=== PATIENT | male | born 1955 | race Caucasian/White ===

== ENCOUNTER 2016-09-02 11:38 | Inpatient (IN) | payer MEDICAID ==
[~2016-09-02] VITALS: Ht 175.3 cm; Wt 114.8 kg
[~2016-09-02 11:38] MED LIST: ACTIGALL300 MG PO; ALDACTONE100 MG PO; ALDACTONE25 MG PO; ARGININE PO; CALCIUM WITH D3 PO; DUL5 PO; ENALAPRIL MALEA10 MG PO; FERROUS SULFAT325 M2 PO; FUROSEMIDE40 MG PO; GLUCOVANCE1 TA2 PO; GLYBURIDE1.5 MG PO; LAC30L NG; LAC30L PO; LACTULOSE10 GM/152 PO; MEPHYTON5 MG PO; METFORMIN HCL1000 MG PO; METFORMIN1000 M1 PO; MULTI VITAMINS1 TA1 PO; NEO500 PO; NEXIUM40 MG PO; PRILOSEC20 MG PO; PROPRANOLOL HCL10 MG PO; PROPRANOLOL HCL20 MG PO; PROT40I IV; PROTONIX20 MG PO; SENOKOT NATURA8.6 M1 PO; URSODIOL300 MG PO; XIFAXAN550 M1 PO; [UNRECOGNIZED DRUG - OTHER] IV; [UNRECOGNIZED DRUG - OTHER] PO; [UNRECOGNIZED DRUG - OTHER] PO
[2016-09-02 12:22] LABS: BASOPHIL % 0.5 % (0-2); RED CELL DISTRIBUTION WIDTH 14.2 % (11.5-14.5)
[2016-09-02 12:27] LABS: PLATELET COUNT 86 x10^3mcL (130-400)
[2016-09-02 12:30] LABS: CALCIUM 9.3 mg/dL (8.5-10.1); CHLORIDE SERUM 102 mmol/L (98-107); GFR1 > 60 mL/min; GLUCOSE SERUM 204 mg/dL (74-106); POTASSIUM SERUM 4.8 mmol/L (3.5-5.1); SODIUM SERUM 136 mmol/L (136-145)
[2016-09-02 12:34] LABS: ALKALINE PHOSPHATASE 228 U/L (46-116); ALT/SGPT 44 U/L (16-63); AST/SGOT 56 U/L (15-37); BILIRUBIN TOTAL 2.61 mg/dL (0.20-1.00); CHOLESTEROL 144 mg/dL (<200); TOTAL PROTEIN, SERUM 6.9 g/dL (6.4-8.2)
[2016-09-02 12:43] LABS: ALBUMIN 2.7 g/dL (3.4-5.0)
[2016-09-02 14:38] VITALS: BP 124/69
[2016-09-02 14:47] VITALS: Ht 175.3 cm; Wt 114.8 kg
[2016-09-02 16:21] LABS: MAGNESIUM 1.4 mg/dL (1.8-2.4); PHOSPHOROUS 3.7 mg/dL (2.5-4.9)
[2016-09-02 16:25] LABS: T3 TOTAL 0.87 ng/mL
[2016-09-02 16:32] LABS: FREE T4 1.3 ng/dL (0.76-1.46); FREE THYROXINE INDEX 2.7 ug/dL (1.4-4.5); T4(THYROXINE) 7.2 ug/dL (4.7-13.3)
[2016-09-02 17:18] VITALS: BP 109/56
[2016-09-02 17:53] LABS: microscopic required? NO
[2016-09-02 18:01] LABS: UA SPECIFIC GRAVITY >=1.030 (1.005-1.035); urine erythrocyte NEGATIVE (NEGATIVE)
[2016-09-03 06:09] LABS: BASOPHIL % 0.4 % (0-2); RED CELL DISTRIBUTION WIDTH 13.9 % (11.5-14.5)
[2016-09-03 06:39] LABS: PLATELET COUNT 73 x10^3mcL (130-400)
[2016-09-03 06:40] VITALS: BP 106/52
[2016-09-03 07:42] LABS: CALCIUM 8.8 mg/dL (8.5-10.1); CARBON DIOXIDE 23.4 mmol/L (21-32); CHLORIDE SERUM 105 mmol/L (98-107); CHOLESTEROL 134 mg/dL (<200); CREATININE SERUM 0.9 mg/dL (0.7-1.3); GFR1 > 60 mL/min; GLUCOSE SERUM 130 mg/dL (74-106); SODIUM SERUM 137 mmol/L (136-145); TRIGLYCERIDES 128 mg/dL (<150)
[2016-09-03 07:43] LABS: CHOLESTEROL/HDL RATIO 2.9; HDL CHOLESTEROL 47 mg/dL (40-60)
[2016-09-03 09:24] VITALS: BP 129/67
[2016-09-03 14:00] VITALS: BP 115/67
[2016-09-03 17:00] VITALS: BP 116/67
[2016-09-03 22:12] VITALS: BP 132/68
[2016-09-04 04:55] VITALS: BP 105/64
[2016-09-04 06:37] LABS: BASOPHIL % 0.3 % (0-2); RED CELL DISTRIBUTION WIDTH 13.9 % (11.5-14.5)
[2016-09-04 06:58] LABS: PLATELET COUNT 67 x10^3mcL (130-400)
[2016-09-04 07:03] LABS: CALCIUM 8.6 mg/dL (8.5-10.1); CARBON DIOXIDE 23.7 mmol/L (21-32); CHLORIDE SERUM 104 mmol/L (98-107); CREATININE SERUM 0.9 mg/dL (0.7-1.3); GFR1 > 60 mL/min; GLUCOSE SERUM 164 mg/dL (74-106); MAGNESIUM 1.3 mg/dL (1.8-2.4); PHOSPHOROUS 3.9 mg/dL (2.5-4.9); POTASSIUM SERUM 4.2 mmol/L (3.5-5.1); SODIUM SERUM 135 mmol/L (136-145)
[2016-09-04 09:36] VITALS: BP 117/68
[2016-09-04] MEDS ORDERED: GLU5 PO (13:24)
[2016-09-04 13:44] VITALS: BP 117/68
== END 2016-09-04 15:03 | disposition home or self-care (01) | DRG 280 ==
LOC: ED 11:38 → DU 13:35 → MU 09-04 06:54
PROVIDERS: Specialist; ADMIT Family Medicine
DX: K70.30 Alcoholic cirrhosis of liver without ascites (principal); K70.41 Alcoholic hepatic failure with coma; E43 Unspecified severe protein-calorie malnutrition; E11.59 Type 2 diabetes mellitus with other circulatory complications; D69.59 Other secondary thrombocytopenia; E11.65 Type 2 diabetes mellitus with hyperglycemia; F10.21 Alcohol dependence, in remission; L40.9 Psoriasis, unspecified; M51.16 Intervertebral disc disorders with radiculopathy, lumbar region; Z68.37 Body mass index [BMI] 37.0-37.9, adult; Z87.820 Personal history of traumatic brain injury
CPT/HCPCS: 82962; 83880; 84439; G0480; J3475; J7030; Q0092

== ENCOUNTER 2017-01-14 13:00 | Emergency (ER) | payer MEDICAID ==
[~2017-01-14] VITALS: Ht 172.7 cm; Wt 112.5 kg
[~2017-01-14 13:00] MED LIST changes: +GLU5 PO
[2017-01-14 15:17] VITALS: BP 107/65
[2017-01-15] MEDS ORDERED: PROPRANOLOL HCL10 MG PO (04:08)
[2017-01-15] MEDS ORDERED: TRAZODONE50 M1 PO (04:10)
[2017-01-15] MEDS ORDERED: METFORMIN HCL1000 MG PO (04:10)
[2017-01-15] MEDS ORDERED: XIFAXAN550 M1 PO (04:10)
[2017-01-15] MEDS ORDERED: ALDACTONE25 MG PO (04:10)
[2017-01-15] MEDS ORDERED: LACTULOSE10 GM/152 PO (04:11)
[2017-01-15] MEDS ORDERED: URSODIOL300 MG PO (04:11)
[2017-01-15] MEDS ORDERED: [UNRECOGNIZED DRUG - CODE] PO (04:11)
[2017-01-15] MEDS ORDERED: GLIPIZIDE2.5 M1 PO (04:12)
[2017-01-15] MEDS ORDERED: DIAZEPAM5 MG PO (04:13)
[2017-01-15] MEDS ORDERED: TRAMADOL HCL50 MG PO (04:14)
== END 2017-01-14 15:36 | disposition home or self-care (01) ==
LOC: ED 13:00
DX: M54.16 Radiculopathy, lumbar region (principal); K74.60 Unspecified cirrhosis of liver; E11.9 Type 2 diabetes mellitus without complications; I10 Essential (primary) hypertension; E66.01 Morbid (severe) obesity due to excess calories
CPT/HCPCS: J1100; J1885

== ENCOUNTER 2017-01-15 00:33 | Inpatient (IN) | payer MEDICAID ==
[~2017-01-15] VITALS: Ht 172.7 cm; Wt 112.7 kg
[2017-01-15 01:41] LABS: RED CELL DISTRIBUTION WIDTH 13.4 % (11.5-14.5)
[2017-01-15 01:55] LABS: BILIRUBIN TOTAL 2.6 mg/dL (0.20-1.00); CALCIUM 8.6 mg/dL (8.5-10.1); CARBON DIOXIDE 19.1 mmol/L (21-32); CREATININE SERUM 1.7 mg/dL (0.7-1.3); POTASSIUM SERUM 5.2 mmol/L (3.5-5.1); TOTAL PROTEIN, SERUM 7.3 g/dL (6.4-8.2)
[2017-01-15 01:57] LABS: BASOPHIL % 3.2 % (0-2); PLATELET COUNT 77 x10^3mcL (130-400)
[2017-01-15 01:58] LABS: ALBUMIN 2.5 g/dL (3.4-5.0)
--- NOTE | 2017-01-15 02:07 | NUR ---
PATIENT SEEN WITH COM[PLAINT OF HAVING HIGH BLOOD SUGAR AT HOME. PATIENT WAS SEEN BY MD. SALINE LOCK INSERTED, FLUID BOLUS GIVEN.
--- NOTE | 2017-01-15 03:40 | NUR ---
CHANGE IN ASSIGNMENT REPORT GIVEN BY CECIL GASCA TO CONTINUE CARE.
--- NOTE | 2017-01-15 03:55 | NUR ---
PT GIVEN IV MED PER DR ABEL ORDERS. PT EDUCATED ON MED AND VERBALIZED UNDERSTANDING OF TEACHING. PT IV SITE PATENT WITH NO SX OF INFILTRATION NOTED. PT ON GURNEY WATCHING TV, BREATING EVEN AND UNLABORED. NO SX OF DISTRESS NOTED AT THIS TIME.
[2017-01-15] MEDS ORDERED: PROPRANOLOL HCL10 MG PO (04:08)
[2017-01-15] MEDS ORDERED: METFORMIN HCL1000 MG PO (04:10)
[2017-01-15] MEDS ORDERED: ALDACTONE25 MG PO (04:10)
[2017-01-15] MEDS ORDERED: XIFAXAN550 M1 PO (04:10)
[2017-01-15] MEDS ORDERED: TRAZODONE50 M1 PO (04:10)
[2017-01-15] MEDS ORDERED: LACTULOSE10 GM/152 PO (04:11)
[2017-01-15] MEDS ORDERED: URSODIOL300 MG PO (04:11)
[2017-01-15] MEDS ORDERED: [UNRECOGNIZED DRUG - CODE] PO (04:11)
[2017-01-15] MEDS ORDERED: GLIPIZIDE2.5 M1 PO (04:12)
[2017-01-15] MEDS ORDERED: DIAZEPAM5 MG PO (04:13)
[2017-01-15] MEDS ORDERED: TRAMADOL HCL50 MG PO (04:14)
--- NOTE | 2017-01-15 05:11 | NUR ---
XRAY AT BEDSIDE.
--- NOTE | 2017-01-15 05:13 | NUR ---
ADMISSION REPORT GIVEN TO CECIL ESTRADA EXT [id number] TO CONTINUE CARE.
--- NOTE | 2017-01-15 05:19 | NUR ---
NATALIE RN EXT [id number] CALLED FOR BLOOD SUGAR UPDATE.
--- NOTE | 2017-01-15 05:23 | NUR ---
PT GIVEN PO MED PER DR ABEL ORDERS. PT EDUCATED ON MED AND VERBALIZED UNDERSTANDING. NO DIFFICULTY SWALLOWING NOTED.
--- NOTE | 2017-01-15 05:45 | NUR ---
PT BROUGHT UP FROM ER VIA [facility] W/ NURSE. AMBULATED TO BED WITH MINIMAL ASSIST, NO SOB OR S/S OF RESP DISTRESS PRESENT; O2 SAT 97% RA. NO HX SMOKING, NO C/O CHEST PAIN AT THIS TIME. TELE # 41, NSR. CAME IN TO ER FOR WEAKNESS, DIZZINESS, ABD/BACK PAIN. DENIES PAIN AT THIS TIME, GIVEN KAYEXALATE FOR ELEVATED K+ (5.1), BLOOD SUGAR UPON ADMISSION TO ER 477, RETESTED IN ER AT BEDSIDE 442, GIVEN 5 UNITS. BLOOD SUGAR 375 @ 0630, GIVEN 50UNITS. IV INFUSING TO RT WRIST, NS @ 100ML/HR. ORIENTED PT TO ROOM, CALL LIGHT. PT NEAR RESTROOM FOR BM WHEN NEEDED D/T KAYEXALATE. WILL CONTINUE TO MONITOR.
[2017-01-15 05:48] LABS: MAGNESIUM 1.6 mg/dL (1.8-2.4); PHOSPHOROUS 2.6 mg/dL (2.5-4.9)
[2017-01-15 05:56] LABS: T3 TOTAL 0.71 ng/mL
[2017-01-15 06:03] LABS: CHOLESTEROL/HDL RATIO 3.3; FREE T4 1.15 ng/dL (0.76-1.46); FREE THYROXINE INDEX 3.1 ug/dL (1.4-4.5); T4(THYROXINE) 7.9 ug/dL (4.7-13.3)
[2017-01-15 06:10] VITALS: BP 137/80
--- NOTE | 2017-01-15 07:04 | NUR ---
REPORT GIVEN TO AM NURSE. ALSO ENDORSED TO GIVE INFLUENZA VACCINE ( NOT YET VERIFIED AT THIS TIME).
--- NOTE | 2017-01-15 07:04 | NUR ---
CORRECTION, 15 UNITS INSULIN GIVEN, NOT 50 UNITS. MISTYPE.
--- NOTE | 2017-01-15 07:30 | NUR ---
PATIENT IS RESTING IN BED ALERT AND CALM. PATIENTS HAS SCDS IN PLACE. PATIENT INQUIRING ABOUT EATING. EDUCATED ABOUT NPO STATUS. PATIENT HAS IV INFUSING NS 100 ML/HR, SITE WNL. PATIENT IS ON ROOM AIR, BOWEL SOUNDS ARE HYPOACITVE, STOMACH SOFT BUT SLIGHTLY DISTENDED. PATIENT IS TELE 41. CALL LIGHT IS WIHIN REACH, SIDE RAILS ARE UP AND BED IS LOCKED. PATIENT DENIES PAIN AT THIS TIME BUT STATES THAT HE HAS SCIATICA THAT CAUSES PAIN WITH AMBULATION.
[2017-01-15 09:26] VITALS: BP 124/70
--- NOTE | 2017-01-15 10:36 | NUR ---
REVIEWED MEDICATIONS AND EXPLAINED PURPOSE, PATIENT STATED THAT HE UNDERSTOOD THE INSTRUCTIONS, TOLERATED MEDICATIONS. ORDER PUT IN TO TRANSFER TO TELE WAS CANCELLED. PATIENTS STRIP SHOWED ELEVATED T WAVE LAST POTASSIUM WAS 5.2 PATIENT GIVEN KAYEXELATE IN ER, LACTULOSE AND SPIRLACTONE WITH 9AM MEDICATIONS. PATIENT REFUSED ASPIRIN DESPITE EXPLAINING THAT IT HELPS PREVENT CLOTS. PATIENT REFUSED TRAZADONE BC HE SAYS HE ONLY TAKES NEEDED FOR INSOMNIA AND HE TAKES IT AT NIGHT. PATIENT IN NO APPARENT DISTRESS, SIDE RAILS ARE UP AND BED IS LOCKED.
--- NOTE | 2017-01-15 11:45 | NUR ---
PATIENT CALLED COMPLAINING OF HUNGER AND ASKING FOR A SNACK, A SNACK WAS PROVIDED AND THE PATIENTS BLOOD SUGAR WAS REASSESED. PATIENT IS NOT IN DISTRESS, STATING HE WANTED TO AMBULATE AROUND THE ROOM. PATIENT DENIES SOB AND PAIN AT THIS TIME. CALL LIGHT IS WITHIN REACH, SIDE RAILS ARE UP AND BED IS LOCKED.
[2017-01-15 13:06] VITALS: BP 138/77
[2017-01-15 13:25] LABS: microscopic required? NO
[2017-01-15 13:33] LABS: urine erythrocyte NEGATIVE (NEGATIVE)
[2017-01-15 13:50] LABS: AMPHETAMINE QUAL UR NONE DETECTED (NEG <=1000)
--- NOTE | 2017-01-15 13:50 | NUR ---
P.T. NOTES P.T. EVAL DONE; NURSING TO AMBULATE PATIENT AD FILIPE.
--- NOTE | 2017-01-15 14:53 | NUR ---
Initial Nutrition Assessment- Dx: hyperglycemia, hyperkalemia PMHx: cirrhosis of liver, DM, liver failure, GI bleed, s/p TIPS procedure PSHx: s/p TIPS procedure Labs: (01/15/17) Na 129 L (repleted, active order for sodium chl 0.9%), K 5.2 H (active order for kayexalate), Glucose 477 H (active orders for glucotrol and humulin R), Cr 1.7 H, Albumin 2.5 L, Bili 2.6 H, AST 55 H, Hgb 11.7 L, Hct 36 L Meds: aldactone, aspirin, Colace, decadron, Glucotrol, humulin R, kayexalte, morphine sulfate, norco, sodium chl 0.9%, theragran, Tylenol, Zofran Diet: CCHO PO Intakes: Patient report fair appetite, feels hungry Ht: 68 inches (5'8") Wt: 248 pounds (112.71 kg) BMI: 37.8 kg/m2, obesity class 2. 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 Per morning bed huddles, patient's HGBA1c is 5.9%. Nursing Trigger or Consult - unintentional weight loss > 10# in past month, admitted with potential diagnosis. Problem with: N: no V: no D: occasional C: occasional Problems with: Chewing: no Swallowing: no Current appetite: fair, but reports feeling hungry Recent wt changes: %wt change: Patient reports having weighed 292 pounds (5-6 years ago), prior to TIPS procedure patient weighed 232 pounds (and experienced 40-pound weight loss in 10 days thereafter. Vitamin/Supplement: Milk Thistle, MVI-min, vit D3, Magnesium Special Diet at Home: Patient reports he follows a diabetic diet at home; however, due to busy work schedule, he eats out at fast food restaurants often. He also reports working long hours, which prevent him from eating regular meals throughout the day as well as getting enough water/fluids to drink. Physical activity: Used to exercise regularly, but now has low energy and more pain r/t TIPs procedure which limits his ability to exercise. Education: Patient and have attended diabetic diet education classes in the past. RDN provided diabetic diet education to patient and during RDN visit today (01/15), hand provided, patient accepted, verbalized understanding. Estimated Nutritional Needs Based on adjusted body weight of 81 kg. Energy: 4308-6328 kcal/d (30-35 kcal/kg for liver cirrhosis, obesity) Protein: 97-130 gm/d (1.2-1.6 gm/kg for liver cirrhosis, obesity) Fluid: 0193-6405 mL/d (1 mL/kcal) or per MD. Nutrition Diagnosis 1. Increased nutrient needs related liver dysfunction as evidenced by PMHx liver cirrhosis, elevated liver enzymes: AST 55, Bilirubin 2.6. 2. Obesity class 2 related to energy imbalance as evidenced by BMI of 37.8 kg/m2. 3. Altered nutrition-related lab values related to endocrine dysfunction as evidenced by elevated glucose of 477. - Patient currently receives CCHO diet. Intervention/RDN Recommendation(s): 1. Continue on CCHO diet as tolerated. 2. Consult RDN prn. 3. RDN educated patient on diabetic diet; diabetic diet education well received - handouts provided. Monitor/Evaluate Goal: Intake via PO intakes to meet least 75% of estimated needs. Monitor: PO intakes and/or nutrition support tolerance, Labs, GI function F/U in 7 days as low risk (01/22)
--- NOTE | 2017-01-15 15:32 | NUR ---
PATIENT RECIEVING TREATMENT. DOCTOR AT BEDSIDE. PATIENT RECIEVED FLU VACCINE IS L ARM. PATIENT REQUESTING FORM STATING HE WAS GIVEN FLU VACCINE. CALL LIGHT IS WITHIN REACH. WILL FOLLOW UP ON PAPERWORK.
--- NOTE | 2017-01-15 16:57 | NUR ---
PATIENT LAYING IN BED WITH HEATING PAD ON. PATIENT DENIES PAIN AT THIS TIME. PATIENT IS NOT IN DISTRESS, WATCHING TELEVISION, PATIENT EDUCATED ABOUT HOW INSULIN IS ABSORBED BEST IN THE ABDOMEN. PATIENT VERBALIZED UNDERSTANDING. SCDS ARE IN PLACE. CALL LIGHT IS WITHIN REACH AND SIDE RAILS ARE UP.
[2017-01-15 17:26] VITALS: BP 138/81
--- NOTE | 2017-01-15 18:37 | NUR ---
PT HAS HOME MEDS AT BEDSIDE. GIVEN TO DR TALAMANTES TO ORDER FOR PT TO TAKE HERE IN HOSPITAL.
--- NOTE | 2017-01-15 19:28 | NUR ---
PATIENT AMBULATING IN ROOM, HAND OFF REPORT GIVEN TO NOC NURSE, PATIENT DENIES PAIN, SOB AT THIS TIME. CALL LIGHT IS WITHIN REACH.
--- NOTE | 2017-01-15 19:30 | NUR ---
RECIEVED REPORT FROM TRAV. CECIL. PT IS AAOX4. TELE 41 WITH SR (98) WITH AN ELEVATED T WAVE. LUNG SOUNDS ARE CTA ON RA. BOWEL SOUNDS ARE PRESENT. AND IS SOFT, ROUND, NON-TENDER. THE PT IS AMBULATORY WITH GOOD STRENGTH IN ALL EXTREMITIES. IV ACCESS TO RIGHT WRIST, INFUSING 100 CC/HR OF NS. THE BED IS IN THE LOWEST POSITION AND THE CALL LIGHT IS WITHIN REACH. WILL CONTINUE TO MONITOR.
[2017-01-15 20:41] VITALS: Ht 172.7 cm; Wt 112.7 kg
[2017-01-15 21:41] VITALS: BP 138/72
--- NOTE | 2017-01-15 23:00 | NUR ---
PT IS RESTING COMFORTABLY. EVEN, UNLABORED BREATHING. NO ACUTE DISTRESS NOTED. WILL CONTINUE TO MONITOR.
--- NOTE | 2017-01-16 01:39 | NUR ---
PT IS SLEEPING COMFORTABLY. NO ACUTE DISTRESS NOTED. CALL LIGHT WITHIN REACH. WILL CONTINUE TO MONITOR.
--- NOTE | 2017-01-16 04:00 | NUR ---
PT IS RESTING COMFORTABLY IN BED. IV IS INFUSING INTENDED. CALL LIGHT WITHIN REACH. WILL CONTINUE TO MONITOR.
[2017-01-16 05:31] LABS: BASOPHIL % 0.1 % (0-2); RED CELL DISTRIBUTION WIDTH 14.3 % (11.5-14.5)
[2017-01-16 05:44] LABS: PLATELET COUNT 59 x10^3mcL (130-400)
[2017-01-16 05:45] LABS: CALCIUM 8.2 mg/dL (8.5-10.1); CARBON DIOXIDE 24.2 mmol/L (21-32); CHLORIDE SERUM 107 mmol/L (98-107); CREATININE SERUM 0.7 mg/dL (0.7-1.3); GFR1 > 60 mL/min; GLUCOSE SERUM 215 mg/dL (74-106); MAGNESIUM 2.3 mg/dL (1.8-2.4); PHOSPHOROUS 2.8 mg/dL (2.5-4.9)
[2017-01-16 05:47] VITALS: BP 112/68
[2017-01-16 05:58] LABS: SODIUM SERUM 137 mmol/L (136-145)
[2017-01-16 06:03] LABS: POTASSIUM SERUM 4.1 mmol/L (3.5-5.1)
--- NOTE | 2017-01-16 06:11 | NUR ---
THE PT IS RESTING COMFORTABLY IN BED. ALL NEEDS HAVE BEEN MET THROUGHOUT THE NIGHT. THE BED IS IN THE LOWEST POSITION AND THE CALL LIGHT IS WITHIN REACH. WILL ENDORSE TO MORNING SHIFT.
--- NOTE | 2017-01-16 08:00 | NUR ---
AWAKE AND ALERT. TEMP 97.8. TELE #41 SINUS RHYTHM WITH ELEVATED T WAVE. DENIES CHEST DISCOMFORT. RESP 18 EVEN. BREATH SOUNDS CLEAR. NO COUGH OR SOB. PULSE OX 98% RA. ABD SOFT BOWEL TONES PRESENT. LBM=10-20-17. VOIDING QS. NO EDEMA. PULSES PRESENT. SCD IN PLACE. IV PATENT RIGHT WRIST INFUSING NORMAL SALINE 100CC/HR. SIDE RAILS UP X2. CALL LIGHT IN REACH.
--- NOTE | 2017-01-16 08:50 | NUR ---
DR DUKES AND MEDICAL TEAM IN ON ROUNDS. CHARGE AND PRIMARY NURSE PRESENT. DISCUSSED PLAN OF CARE. DIABETIC MANAGEMENT. RIGHT LEG SCIATIC DISCOMFORT. TO ADD MUSCLE RELAXANT TO MED LIST. PT VERBALIZED UNDERSTANDING. ECHO IN PROGRESS.
[2017-01-16 09:26] VITALS: BP 119/68
--- NOTE | 2017-01-16 09:49 | NUR ---
C/O RIGHT SCIATIC DISCOMFORT. REQUEST PAIN MED. MED WITH ULTRAM 50MG PO ORDERED.
--- NOTE | 2017-01-16 10:28 | NUR ---
ECHOCARDIOGRAM COMPLETED.
--- NOTE | 2017-01-16 12:15 | NUR ---
AVP=[id number]. RISS COVERAGE 6 UNITS SQ. DENIES PAIN AT THIS TIME. AMBULATES WELL IN ROOM. IV CONTINUES PATENT. CALL LIGHT IN REACH.
--- NOTE | 2017-01-16 15:26 | NUR ---
IV CONVERTED TO SALINE LOCK. ASSIST UP TO SHOWER. DENIES PAIN AT THIS TIME.
--- NOTE | 2017-01-16 17:10 | NUR ---
SHOWER COMPLETED. TOLERATED WELL. DUU=[id number]. RISS COVERAGE 9 UNITS GIVEN. DENIES PAIN. IV SITE PATENT. CALL LIGHT IN REACH. WILL CONTINUE TO MONITOR.
[2017-01-16 18:19] VITALS: BP 115/59
--- NOTE | 2017-01-16 19:05 | NUR ---
RECEIVED BEDSIDE REPORT, AAOX4. NO RESP DISTRESS NOTED ON ROOM AIR, LUNG SOUND CTA, STS PAIN TO LOWER BACK RADIATING TO RLE IS TOLERABLE AT THIS TIME, BRP, IVF NS TO RT HAND INFUSING WELL, SCD TO BLE INPLACED, PLAN OF CARE DISCUSSED, CALL LIGHT PLACED WITHIN EASY REACH, SIDERAILS UP X2.
[2017-01-16 21:27] VITALS: BP 124/70
[2017-01-17 05:47] VITALS: BP 107/56
[2017-01-17 06:04] LABS: CARBON DIOXIDE 28.8 mmol/L (21-32); CHLORIDE SERUM 107 mmol/L (98-107); CREATININE SERUM 0.7 mg/dL (0.7-1.3); GFR1 > 60 mL/min; GLUCOSE SERUM 158 mg/dL (74-106); MAGNESIUM 1.5 mg/dL (1.8-2.4); PHOSPHOROUS 2.9 mg/dL (2.5-4.9); POTASSIUM SERUM 3.8 mmol/L (3.5-5.1); SODIUM SERUM 138 mmol/L (136-145)
[2017-01-17 06:11] LABS: BASOPHIL % 0.3 % (0-2)
[2017-01-17 06:14] LABS: PLATELET COUNT 62 x10^3mcL (130-400); RED CELL DISTRIBUTION WIDTH 14.7 % (11.5-14.5)
--- NOTE | 2017-01-17 06:43 | NUR ---
SLEPT WELL THROUGHOUT SHIFT. STS PAIN IS RELIEF WITH ROBAXIN PO Q 8HRS GIVEN. BRP. IVF NS CONTINUED AT 100ML/HR TO RT WRIST IV SITE.
--- NOTE | 2017-01-17 07:30 | NUR ---
A+OX4, NO RESPIRATORY DISTRESS NOTED, IN NO APAPRANT PAIN, PULSES MODERATE AND EQUAL LAITH, NO EDEMA PRESENT, LUNG SOUNDS CTA, TOLERATING RA, BOWEL SOUNDS ACTIVE, VOIDING, AMBULATORY, SKIN INTACT, IV IN RW WITH NS @ 100 ML/HR, SITE WNL, RBC 3.10, HGB 10.5, HCT 31, PLT 62, CA 8.0, MG 1.5.
--- NOTE | 2017-01-17 09:05 | NUR ---
PT RESTING IN BED, NO RESPIRATORY DISTRESS NOTED, DENIES PAIN.
[2017-01-17 09:58] VITALS: BP 123/73
--- NOTE | 2017-01-17 10:08 | NUR ---
PT RESTING IN BED, NO RESPRIATORY DISTRESS NOTED, DENIES PAIN.
[2017-01-17] MEDS ORDERED: XIFAXAN550 M1 PO (10:15)
[2017-01-17 10:24] VITALS: BP 123/73
[2017-01-17] MEDS ORDERED: LAC30L PO (10:27)
[2017-01-17] MEDS ORDERED: ROB750 PO (10:29)
--- NOTE | 2017-01-17 10:54 | NUR ---
PT COMPLAINING OF 8/10 BACK PAIN, NORCO GIVEN, NO RESPIRATORY DISTRESS NOTED.
--- NOTE | 2017-01-17 11:59 | NUR ---
DR MEJIA IN TO SPEAK TO PT.
--- NOTE | 2017-01-17 12:41 | NUR ---
PT GIVEN DISCHARGE INSTRUCTIONS AND VERBALIZED UNDERSTANDING, IV REMOVED WITH CATHETER INTACT, NO TELE TO REMOVE. NO RESPIRATORY DISTRESS NOTED.
== END 2017-01-17 13:55 | disposition home or self-care (01) | DRG 420 ==
LOC: ED 00:33 → DU 04:35 → MU 01-16 12:32
PROVIDERS: Emergency Medicine; Family Medicine; ADMIT Family Medicine
DX: E11.65 Type 2 diabetes mellitus with hyperglycemia (principal); N17.0 Acute kidney failure with tubular necrosis; E43 Unspecified severe protein-calorie malnutrition; D68.69 Other thrombophilia; K74.60 Unspecified cirrhosis of liver; E87.5 Hyperkalemia; E83.42 Hypomagnesemia; I36.1 Nonrheumatic tricuspid (valve) insufficiency; E87.1 Hypo-osmolality and hyponatremia; M51.16 Intervertebral disc disorders with radiculopathy, lumbar region; I37.1 Nonrheumatic pulmonary valve insufficiency; D53.9 Nutritional anemia, unspecified; L40.9 Psoriasis, unspecified; E66.9 Obesity, unspecified; Z68.37 Body mass index [BMI] 37.0-37.9, adult; Z79.84 Long term (current) use of oral hypoglycemic drugs
CPT/HCPCS: 82962; 83880; 84439; 90658; J1815; J3475; J7030; Q0092

== ENCOUNTER 2018-03-03 11:58 | Emergency (ER) | payer OTHER ==
[~2018-03-03] VITALS: Ht 172.7 cm; Wt 104.8 kg
[~2018-03-03 11:58] MED LIST changes: +DIAZEPAM5 MG PO; +GLIPIZIDE2.5 M1 PO; +ROB750 PO; +TRAMADOL HCL50 MG PO; +TRAZODONE50 M1 PO; +[UNRECOGNIZED DRUG - CODE] PO
[2018-03-03 12:42] LABS: BASOPHIL % 1.6 % (0-2)
[2018-03-03 12:47] LABS: CALCIUM 8.7 mg/dL (8.5-10.1); CARBON DIOXIDE 23.4 mmol/L (21-32); CREATININE SERUM 1.6 mg/dL (0.7-1.3); POTASSIUM SERUM 4.7 mmol/L (3.5-5.1)
[2018-03-03 12:51] LABS: ALBUMIN 3.5 g/dL (3.4-5.0); BILIRUBIN TOTAL 0.4 mg/dL (0.20-1.00); TOTAL PROTEIN, SERUM 6.9 g/dL (6.4-8.2)
[2018-03-03 12:58] LABS: PLATELET COUNT 101 x10^3mcL (130-400); RED CELL DISTRIBUTION WIDTH 16.3 % (11.5-14.5)
[2018-03-03 13:22] VITALS: BP 158/85
== END 2018-03-03 13:37 | disposition home or self-care (01) ==
LOC: ED 11:58
PROVIDERS: Emergency Medicine
DX: E11.8 Type 2 diabetes mellitus with unspecified complications (principal); F43.9 Reaction to severe stress, unspecified; K74.60 Unspecified cirrhosis of liver; Z94.4 Liver transplant status
CPT/HCPCS: 36415; J1815; Q0092

== ENCOUNTER 2018-04-19 22:17 | Emergency (ER) | payer OTHER ==
[~2018-04-19] VITALS: Ht 172.7 cm; Wt 105.2 kg
[2018-04-19 22:25] VITALS: Ht 172.7 cm; Wt 105.2 kg
[2018-04-20 02:02] VITALS: BP 145/78
== END 2018-04-20 02:06 | disposition home or self-care (01) ==
LOC: ED 22:17
DX: R51 Headache (principal); H57.11 Ocular pain, right eye; E11.9 Type 2 diabetes mellitus without complications; Z87.19 Personal history of other diseases of the digestive system
CPT/HCPCS: J1885

== ENCOUNTER 2018-10-20 01:25 | Emergency (ER) | payer OTHER ==
[~2018-10-20] VITALS: Ht 172.7 cm; Wt 88.5 kg
[2018-10-20 01:33] VITALS: Ht 172.7 cm; Wt 88.5 kg
[2018-10-20 02:03] LABS: BASOPHIL % 0.3 % (0-2); PLATELET COUNT 153 x10^3mcL (130-400)
[2018-10-20 02:06] LABS: RED CELL DISTRIBUTION WIDTH 15.6 % (11.5-14.5)
[2018-10-20 02:09] LABS: CALCIUM 9.4 mg/dL (8.5-10.1); CARBON DIOXIDE 27.2 mmol/L (21-32); CHLORIDE SERUM 104 mmol/L (98-107); CREATININE SERUM 1.2 mg/dL (0.7-1.3); GFR1 > 60 mL/min; GLUCOSE SERUM 130 mg/dL (74-106); POTASSIUM SERUM 3.5 mmol/L (3.5-5.1); SODIUM SERUM 142 mmol/L (136-145)
[2018-10-20 02:15] LABS: ALBUMIN 3.8 g/dL (3.4-5.0); ALKALINE PHOSPHATASE 100 U/L (46-116); ALT/SGPT 28 U/L (16-63); AST/SGOT 21 U/L (15-37); BILIRUBIN TOTAL 0.3 mg/dL (0.20-1.00); LIPASE 223 IU/L (73-393); TOTAL PROTEIN, SERUM 7.5 g/dL (6.4-8.2)
[2018-10-20 05:39] VITALS: BP 147/92
== END 2018-10-20 05:39 | disposition home or self-care (01) ==
LOC: ED 01:25
PROVIDERS: Emergency Medicine
DX: E11.649 Type 2 diabetes mellitus with hypoglycemia without coma (principal); F32.9 Major depressive disorder, single episode, unspecified; Z98.890 Other specified postprocedural states
CPT/HCPCS: 36415; 82962

== ENCOUNTER 2019-01-04 10:36 | Emergency (ER) | payer OTHER ==
[~2019-01-04] VITALS: Ht 170.2 cm; Wt 94.1 kg
[2019-01-04 12:17] LABS: CALCIUM 8.7 mg/dL (8.5-10.1); CARBON DIOXIDE 27.8 mmol/L (21-32); CREATININE SERUM 1.3 mg/dL (0.7-1.3); POTASSIUM SERUM 4.5 mmol/L (3.5-5.1)
[2019-01-04 12:22] LABS: BASOPHIL % 0.2 % (0-2); PLATELET COUNT 154 x10^3mcL (130-400)
[2019-01-04 12:23] LABS: ALBUMIN 3.8 g/dL (3.4-5.0); BILIRUBIN TOTAL 0.3 mg/dL (0.20-1.00); TOTAL PROTEIN, SERUM 7.6 g/dL (6.4-8.2)
[2019-01-04 12:25] LABS: CHOLESTEROL/HDL RATIO 4.6
[2019-01-04 12:28] LABS: FREE T4 0.87 ng/dL (0.76-1.46); FREE THYROXINE INDEX 2.5 ug/dL (1.4-4.5); T4(THYROXINE) 7.6 ug/dL (4.7-13.3)
[2019-01-04 12:34] LABS: RED CELL DISTRIBUTION WIDTH 15.1 % (11.5-14.5)
[2019-01-04 14:55] VITALS: BP 128/81
== END 2019-01-04 14:55 | disposition home or self-care (01) ==
LOC: ED 10:36
PROVIDERS: Specialist
DX: M54.9 Dorsalgia, unspecified (principal); R07.89 Other chest pain; E11.9 Type 2 diabetes mellitus without complications; F32.9 Major depressive disorder, single episode, unspecified; Z98.890 Other specified postprocedural states
CPT/HCPCS: 36415; 83880; 84439; Q9967

== ENCOUNTER 2019-12-22 21:56 | Emergency (ER) | payer OTHER ==
[~2019-12-22] VITALS: Ht 172.7 cm; Wt 118.1 kg
[2019-12-22 21:59] VITALS: Ht 172.7 cm; Wt 118.1 kg
[2019-12-23 02:35] VITALS: BP 146/85
== END 2019-12-23 02:35 | disposition home or self-care (01) ==
LOC: ED 21:56
DX: I82.412 Acute embolism and thrombosis of left femoral vein (principal); I82.432 Acute embolism and thrombosis of left popliteal vein; E11.9 Type 2 diabetes mellitus without complications
CPT/HCPCS: Q0092

== ENCOUNTER 2019-12-27 19:41 | Emergency (ER) | payer OTHER ==
[~2019-12-27] VITALS: Ht 172.7 cm; Wt 111.1 kg
[2019-12-27 19:46] VITALS: BP 149/88; Ht 172.7 cm; Wt 111.1 kg
== END 2019-12-27 22:10 | disposition home or self-care (01) ==
LOC: ED 19:41
DX: S61.216A Laceration without foreign body of right little finger without damage to nail, initial encounter (principal); E11.9 Type 2 diabetes mellitus without complications; Z98.890 Other specified postprocedural states; W26.8XXA Contact with other sharp object(s), not elsewhere classified, initial encounter; Y93.89 Activity, other specified; Y92.89 Other specified places as the place of occurrence of the external cause; Y99.8 Other external cause status
CPT/HCPCS: 90715; A4570; J2001

== ENCOUNTER 2020-01-22 10:24 | Emergency (ER) | payer OTHER ==
[~2020-01-22] VITALS: Ht 172.7 cm; Wt 112.0 kg
[2020-01-22 10:37] VITALS: BP 141/79; Ht 172.7 cm; Wt 112.0 kg
== END 2020-01-22 13:00 | disposition home or self-care (01) ==
LOC: ED 10:24
DX: E11.9 Type 2 diabetes mellitus without complications (principal); S61.216D Laceration without foreign body of right little finger without damage to nail, subsequent encounter; X58.XXXD Exposure to other specified factors, subsequent encounter

== ENCOUNTER 2020-01-27 18:02 | Emergency (ER) | payer OTHER ==
[~2020-01-27] VITALS: Ht 172.7 cm; Wt 114.8 kg
[2020-01-27 18:13] VITALS: Ht 172.7 cm; Wt 114.8 kg
[2020-01-27 19:54] VITALS: BP 152/90
== END 2020-01-27 19:45 | disposition home or self-care (01) ==
LOC: ED 18:02
DX: S52.571A Other intraarticular fracture of lower end of right radius, initial encounter for closed fracture (principal); S50.811A Abrasion of right forearm, initial encounter; E66.9 Obesity, unspecified; I10 Essential (primary) hypertension; E11.9 Type 2 diabetes mellitus without complications; Z68.38 Body mass index [BMI] 38.0-38.9, adult; Z98.890 Other specified postprocedural states; X58.XXXA Exposure to other specified factors, initial encounter; Y93.89 Activity, other specified; Y92.89 Other specified places as the place of occurrence of the external cause; Y99.8 Other external cause status
CPT/HCPCS: A4570; J3010; Q0092

== ENCOUNTER 2020-01-31 12:14 | Emergency (ER) | payer OTHER ==
[~2020-01-31] VITALS: Ht 175.3 cm; Wt 113.4 kg
[2020-01-31 12:28] VITALS: Ht 175.3 cm; Wt 113.4 kg
[2020-01-31 13:45] LABS: BASOPHIL % 0.8 % (0-2); PLATELET COUNT 184 x10^3mcL (130-400)
[2020-01-31 13:55] LABS: RED CELL DISTRIBUTION WIDTH 15.8 % (11.5-14.5)
[2020-01-31 14:03] LABS: CALCIUM 8.7 mg/dL (8.5-10.1); CHLORIDE SERUM 101 mmol/L (98-107); CREATININE SERUM 1.1 mg/dL (0.7-1.3); GFR1 > 60 mL/min; GLUCOSE SERUM 216 mg/dL (74-106); SODIUM SERUM 137 mmol/L (136-145)
[2020-01-31 14:08] LABS: ALKALINE PHOSPHATASE 123 U/L (46-116); ALT/SGPT 67 U/L (16-63); AST/SGOT 42 U/L (15-37); BILIRUBIN TOTAL 0.51 mg/dL (0.20-1.00); TOTAL PROTEIN, SERUM 6.9 g/dL (6.4-8.2)
[2020-01-31 14:09] LABS: ALBUMIN 3.3 g/dL (3.4-5.0)
[2020-01-31 15:30] VITALS: BP 138/76
== END 2020-01-31 15:55 | disposition home or self-care (01) ==
LOC: ED 12:14
PROVIDERS: Emergency Medicine
DX: S62.101A Fracture of unspecified carpal bone, right wrist, initial encounter for closed fracture (principal); I10 Essential (primary) hypertension; E11.9 Type 2 diabetes mellitus without complications; X58.XXXA Exposure to other specified factors, initial encounter; Y93.89 Activity, other specified; Y92.89 Other specified places as the place of occurrence of the external cause; Y99.8 Other external cause status

== ENCOUNTER 2020-05-29 18:20 | Emergency (ER) | payer OTHER ==
[~2020-05-29] VITALS: Ht 172.7 cm; Wt 116.6 kg
[2020-05-29 18:44] VITALS: BP 166/94; Ht 172.7 cm; Wt 116.6 kg
[2020-05-29] MEDS ORDERED: ACYCLOVIR800 MG PO (19:01)
== END 2020-05-29 19:06 | disposition home or self-care (01) ==
LOC: ED 18:20
DX: B02.9 Zoster without complications (principal); I10 Essential (primary) hypertension; E11.9 Type 2 diabetes mellitus without complications